=== PATIENT | female | born 1990 | race African-American/Black ===

== ENCOUNTER 2018-10-20 07:53 | Emergency (ER) | payer MEDICAID ==
[~2018-10-20] VITALS: Ht 167.6 cm; Wt 90.7 kg
[2018-10-20 08:14] VITALS: BP 146/94
[2018-10-20] MEDS ORDERED: KETOROLAC TROMETH 60MG/2ML VIAL IM ONE (08:30)
== END 2018-10-20 09:16 | disposition home or self-care (01) ==
LOC: ER 07:53
DX: M65.842 Other synovitis and tenosynovitis, left hand (principal); M65.841 Other synovitis and tenosynovitis, right hand
CPT/HCPCS: 96372; 99283; J1885

== ENCOUNTER → 2020-03-01 | Outpatient (CLI) | payer MEDICAID ==
[~2020-03-01] MED LIST: ALBUAER3 IN; METO-159 PO
== END | disposition home or self-care (01) ==
LOC: SUR 12:07 → EDSTATUS 03-11 10:45
PROVIDERS: ATTEND Orthopaedic Surgery Adult Reconstructive Orthopaedic Surgery
DX: Z01.818 Encounter for other preprocedural examination (principal); G56.01 Carpal tunnel syndrome, right upper limb; Z79.899 Other long term (current) drug therapy; Z98.890 Other specified postprocedural states